=== PATIENT | female | born 1980 | race Caucasian/White ===

== ENCOUNTER 2018-06-19 13:25 | Outpatient (CLI) | payer OTHER ==
--- NOTE | 2018-06-19 15:29 | MRI ---
MRI CERVICAL SPINE WITHOUT CONTRAST: INDICATION: History of neck pain. COMPARISON: None. TECHNIQUE: Multiplanar, multisequence MR images were obtained of the cervical spine without IV contrast. FINDINGS: Visualized aspects of the posterior fossa appear within normal limits. There is some straightening o f the normal cervical lordosis. The visualized aspects of the prevertebral soft tissues are normal-a ppearing. C1 and C2 articulation appears within normal limits on the sagittal images. At C2-C3, there is mild facet joint degenerative change, but no appreciable central canal or neural f oraminal narrowing. At C3-4, there is mild facet osteoarthrosis without appreciable central canal or neural foraminal dodie rowing. At C4-5, there is a broad-based disk bulge with uncovertebral hypertrophy and facet joint degenerativ e change inducing mild central canal narrowing without definite cord compression. At C5-6, there is a broad-based bulge causing mild central canal narrowing and mild ventral effacemen t of the spinal cord. There is uncovertebral hypertrophy along with the disk bulge inducing moderat e to severe right and mild left neural foraminal narrowing. At C6-7, there is no appreciable central canal or neural foraminal narrowing. At C7-T1, there is no appreciable central canal or neural foraminal narrowing. IMPRESSION: 1. Moderate central canal narrowing with mild ventral cord flattening at C5-6 with moderate to sever e right neural foraminal narrowing. 2. Mild central canal narrowing at C4-5 without definite cord flattening. POS: [facility]
== END 2018-06-19 13:26 | disposition home or self-care (01) ==
LOC: SCSMRI 13:25
PROVIDERS: ATTEND Internal Medicine
DX: M54.12 Radiculopathy, cervical region (principal); M48.02 Spinal stenosis, cervical region
CPT/HCPCS: 72141

== ENCOUNTER 2021-09-04 14:29 | Emergency (ER) | payer OTHER ==
[~2021-09-04 14:29] MED LIST: Iopamidol 370 76% 100 ML VIAL ONE
[2021-09-04 15:46] LABS: #Basophils 0.1 thou/uL (0.0-0.2); #Eosinphils 0.1 thou/uL (0.0-0.7); #Lymphocytes 1.9 thou/uL (1.20-3.40); #Monocytes 0.8 thou/uL (0.11-0.59); #Neutrophils 9.8 thou/uL (1.40-6.50); %Basophils 0.5 % (0.0-1.0); %Eosinophils 0.4 % (0.0-10.0); %Lymphocytes 15.2 % (21.0-51.0); %Monocytes 6.4 % (0.0-10.0); %Neutrophils 77.6 % (42.0-75.0); Hemoglobin 14.1 g/dL (12.0-16.0); Mean Corpuscular HGB CONC 34.6 g/dL (32.0-36.0); Mean Corpuscular Hemoglobin 33.3 pg (27.0-31.0); Mean Corpuscular Volume 96.2 fL (78.0-98.0); Mean Platelet Volume 6.8 fL (7.4-10.4); Platelet Count 256 thou/uL (130-400); RBC Distribution Width 11.8 % (11.5-14.5); Red Blood Cell (RBC) Count 4.25 mill/uL (4.20-5.40); White Blood Cell (WBC) Count 12.6 thou/uL (4.8-10.8)
[2021-09-04 16:08] LABS: ALT (SGPT) 22 U/L (8-55); AST (SGOT) 20 U/L (5-34); Albumin 4.3 g/dL (3.5-5.0); Alkaline Phosphatase 59 U/L (40-110); Anion Gap 11 mmol/L (10-20); BUN (Urea Nitrogen) 12 mg/dL (7.0-18.7); Bilirubin, Total 0.7 mg/dL (0.2-1.2); Calc. Creatinine Clearance 0 mL/min (70-130); Calcium 10.1 mg/dL (7.8-10.44); Carbon Dioxide 26 mmol/L (22-29); Chloride 104 mmol/L (98-107); Globulin 2.2 g/dL (2.4-3.5); Glucose 93 mg/dL (70-105); Lipase 30 U/L (8-78); Potassium 3.7 mmol/L (3.5-5.1); Protein, Total 6.5 g/dL (6.0-8.3); Sodium 137 mmol/L (136-145)
[2021-09-04] MEDS ORDERED: Ketorolac Tromethamine 30 MG/ML VIAL ONE (16:36)
[2021-09-04] MEDS ORDERED: Ondansetron PF 4 MG/2 ML Vial ONE (16:36)
[2021-09-04 17:18] LABS: Bacteria/HPF 3+ HPF (None Seen); Bilirubin Negative (Negative); Blood, Urine Trace (Negative); Clarity Clear (Clear); Glucose, Urine (Dipstick) Normal (Negative); Ketone, Urine Negative (Negative); Leukocyte Negative Leu/uL (Negative); Nitrite Negative (Negative); Pregnancy Test - Urine (BHCG) Negative (Negative); Pregu Control Background? CLEAR/WHITE (CLR/WHITE); Pregu Control Bar Appear? YES (CONTROL BAR); Protein, Urine (Dipstick) Negative (Neg-Trace); RBC/HPF 0-3 HPF (0-3); Specific Gravity 1.004 (1.002-1.036); Specific Gravity, Urine 1.004 (1.002-1.036); Squamous Epithelial 0-3 HPF (0-3); Urobilinogen Normal mg/dL (Less than 2); WBC/HPF 0-3 HPF (0-3); pH, Urine 6.5 (5.0-9.0)
[2021-09-04] MEDS ORDERED: Morphine 4 MG/ML VIAL ONE (18:20)
== END 2021-09-04 18:30 | disposition home or self-care (01) ==
LOC: ERS 14:29
DX: N13.2 Hydronephrosis with renal and ureteral calculous obstruction (principal)
CPT/HCPCS: 36415; 74177; 80053; 81003; 81015; 81025; 83690; 85025; 96374; 96375; J1885; J2270; J2405; Q9967